=== PATIENT | male | born 1975 | race Caucasian/White ===

== ENCOUNTER 2017-03-05 06:58 | Day surgery (SDC) | payer BC ==
--- NOTE | 2017-03-03 13:49 | HP ---
DATE OF SURGERY: 03/05/2017 ADMISSION DIAGNOSIS: Polyps of the gallbladder. Elevated liver function. ANTICIPATED PROCEDURE: Cholecystectomy. Liver biopsy. HISTORY OF PRESENT ILLNESS: The patient has upper abdominal discomfort. He does have supposedly polyps in his gallbladder. He has had elevated liver function along with cholesterolosis. We will do a cholecystectomy and liver biopsy. PAST MEDICAL HISTORY: ALLERGIES: NONE. MEDICATIONS: Ambien, hydrochlorothiazide. PAST SURGICAL HISTORY: None. SOCIAL HISTORY: Negative. FAMILY HISTORY: Negative. REVIEW OF SYSTEMS: Negative. PHYSICAL EXAMINATION: VITAL SIGNS: Normal. CHEST: Clear. COR: Regular. ABDOMEN: No palpable organomegaly or mass. IMPRESSION: Ultrasound revealing polyps and elevated liver functions. PLAN: Laparoscopic cholecystectomy and liver biopsy.
[2017-03-05] MEDS ORDERED: MEFOXIN 2 GM PREMIX** 50 ML IV ONE (07:17)
[2017-03-05] MEDS ORDERED: Lactated Ringers 1,000 ML IV SCH (07:30)
[2017-03-05] MEDS ORDERED: Sensorcaine 0.25% 10 ML ONE ×3 (07:31→08:58)
[2017-03-05] MEDS ORDERED: Lactated Ringers 1,000 ML IV ONE ×2 (07:32→08:58)
[2017-03-05] MEDS ORDERED: Decadron 4 MG INJ IV ONE (08:30)
[2017-03-05] MEDS ORDERED: SUBLIMAZE 100 MCG/2 ML IV ONE (08:30)
[2017-03-05] MEDS ORDERED: TORAdol 30 mg Injection IV ONE (08:30)
[2017-03-05] MEDS ORDERED: BRIDION 200MG/2ML IV ONE (08:30)
[2017-03-05] MEDS ORDERED: DILAUDID 2 MG INJECTION IV ONE (08:30)
[2017-03-05] MEDS ORDERED: Zemuron 100 MG/10 ML IJ ONE (08:30)
[2017-03-05] MEDS ORDERED: Quelicin Fliptop 200 MG/10 ML IV ONE (08:30)
[2017-03-05] MEDS ORDERED: Dopram IV ONE (08:30)
[2017-03-05] MEDS ORDERED: DIPRIVAN 200 MG/20 ML IV ONE (08:30)
[2017-03-05] MEDS ORDERED: Zofran 4 MG/2 ML VIAL IV ONE (08:30)
[2017-03-05] MEDS ORDERED: SUBLIMAZE 100 MCG/2 ML ONE (10:26)
[2017-03-05 11:05] VITALS: O2SAT 97
[2017-03-05 11:41] VITALS: BP 130/82; PULSE 89
--- NOTE | 2017-03-06 13:15 | OP ---
SURGERY DATE: 03/05/17 SURGERY TIME: 917 PREOPERATIVE DIAGNOSIS: 1. SYMPTOMATIC CHOLELITHIASIS. 2. ELEVATED LIVER FUNCTIONS. POSTOPERATIVE DIAGNOSIS: 1. SYMPTOMATIC CHOLELITHIASIS. 2. ELEVATED LIVER FUNCTIONS. PROCEDURE: 1. Laparoscopic cholecystectomy. 2. Liver biopsy. SURGEON: Nilo Hernandez M.D. ANESTHESIA: General. COMPLICATIONS: None. CONDITION: Stable. INDICATION: Patient requiring laparoscopic cholecystectomy and evaluation of his liver. OPERATIVE PROCEDURE: Taken to surgery. General anesthetic. Routine prep and drape. Veress needle inserted. Opened to a pressure of 1. Insufflated to a pressure of 14. Four 5's were used. Good visualization. Cystic duct defined. Cystic artery defined. Both structures triply Ligaclipped and transected. Clips totally cross wall approximated. Gallbladder rolled out of gallbladder fossa. Gallbladder delivered through the umbilical port with minimal widening. Hole closure device was used on the umbilicus. The field was dry. CO2 was exsufflated. Skin closed with 4-0 Vicryl and Steri-strips. Additionally, a liver biopsy had been taken and it was coagulated and it was dry.
== END 2017-03-05 11:50 | disposition home or self-care (01) ==
LOC: SDC 06:58
PROVIDERS: ATTEND Surgery
PROC: 0FT44ZZ Resection of Gallbladder, Percutaneous Endoscopic Approach (ICD-10-PCS; principal; 2017-03-05)
PROC: 0FB04ZX Excision of Liver, Percutaneous Endoscopic Approach, Diagnostic (ICD-10-PCS; 2017-03-05)
DX: K80.20 Calculus of gallbladder without cholecystitis without obstruction (principal); K82.4 Cholesterolosis of gallbladder; R79.89 Other specified abnormal findings of blood chemistry; I10 Essential (primary) hypertension
CPT/HCPCS: 00790; 36415; 88304; 88307; 88313; J0330; J0694; J1100; J1170; J1885; J2405; J2704; J3010